=== PATIENT | male | born 1965 | race Caucasian/White ===

== ENCOUNTER 2017-04-06 20:24 | Inpatient (IN) | payer BC ==
[~2017-04-06] VITALS: Ht 188 cm; Wt 126.7 kg
[~2017-04-06 20:24] MED LIST: ASPIRIN 81M81 MG/TA2 PO; AZULFIDINE ENT500 MG PO; COZAAR 25MG25 MG/TAB PO; FLOMAX 0.40.4 MG/CAP PO; PROTONIX20 MG PO; ZITHROMAX 250M250 MG PO; [UNRECOGNIZED DRUG - OTHER]; [UNRECOGNIZED DRUG - OTHER] PO
[2017-04-06 20:48] LABS: BASO # 0.1 (0.0-0.2); BASO % 0.6 % (0.0-2.0); EOS # 0.1 (0.0-0.7); EOS % 0.9 % (0-4.0); GRAN # 8.4 (1.4-6.5); HEMATOCRIT 46.5 % (42.0-52.0); HEMOGLOBIN 15.3 g/dl (13.5-18.0); LYMPH # 2.9 (1.2-3.4); LYMPH % 22.7 % (20.0-51.0); MEAN CELL VOLUME 90 fl (80.0-100.0); MEAN CORPUSCULAR HEMOGLOBIN 30 pg (27.0-31.0); MEAN CORPUSCULAR HGB CONC 33 g/dl (33.0-37.0); MEAN PLATELET VOLUME 10.6 fl (7.4-10.4); MONO # 1.1 (0.1-0.6); MONO % 8.4 % (1.7-9.3); PLATELET COUNT 271 K/mm3 (130-400); RED BLOOD COUNT 5.17 M/mm3 (4.20-5.60); REDCELL DISTRIBUTION WIDTH-CV 12.8 % (11.5-14.5); WHITE BLOOD COUNT 12.7 K/mm3 (4.8-10.8)
[2017-04-06 20:56] LABS: ALBUMIN 4.8 gm/dL (3.5-5.0); BILIRUBIN,TOTAL 0.6 mg/dL (0.0-1.0); CALCIUM 9.6 mg/dL (8.4-10.2); CREATININE, serum 1.19 mg/dL (0.66-1.25); POTASSIUM 3.5 mmol/L (3.4-5.0); TOTAL PROTEIN 8.4 gm/dL (6.4-8.2)
[2017-04-06] MEDS ORDERED: HYZAAR 25 MG-101 TAB PO (22:37)
[2017-04-06 22:43] VITALS: BP 132/79; PULSE 69; TEMP 98.3
[2017-04-07 04:55] VITALS: BP 135/74; PULSE 65; TEMP 98.3
[2017-04-07 05:51] LABS: BASO % 0.3 % (0.0-2.0); EOS % 0.1 % (0-4.0); GRAN # 7.4 (1.4-6.5); GRAN % 78.1 % (42.2-75.2); LYMPH % 10.7 % (20.0-51.0); MEAN CELL VOLUME 91 fl (80.0-100.0); MEAN CORPUSCULAR HGB CONC 33 g/dl (33.0-37.0); MEAN PLATELET VOLUME 10.6 fl (7.4-10.4); MONO % 10.3 % (1.7-9.3); RED BLOOD COUNT 4.38 M/mm3 (4.20-5.60); REDCELL DISTRIBUTION WIDTH-CV 13.2 % (11.5-14.5); WHITE BLOOD COUNT 9.5 K/mm3 (4.8-10.8)
[2017-04-07 05:53] LABS: HEMOGLOBIN 13.1 g/dl (13.5-18.0); MEAN CORPUSCULAR HEMOGLOBIN 30 pg (27.0-31.0); PLATELET COUNT 165 K/mm3 (130-400)
[2017-04-07 06:02] LABS: ADJUSTED CALCIUM 8.7 mg/dL (8.4-10.2); BILIRUBIN,TOTAL 0.7 mg/dL (0.0-1.0); CALCIUM 8.7 mg/dL (8.4-10.2); CREATININE, serum 0.96 mg/dL (0.66-1.25); POTASSIUM 4.3 mmol/L (3.4-5.0); TOTAL PROTEIN 7.4 gm/dL (6.4-8.2)
[2017-04-07 10:28] VITALS: BP 133/73; PULSE 68; TEMP 98.4
[2017-04-07 13:12] VITALS: BP 130/67; PULSE 71; TEMP 98.9
[2017-04-07 17:18] VITALS: BP 145/69; PULSE 77; TEMP 99
[2017-04-07 22:30] VITALS: BP 147/69; PULSE 84; TEMP 99.2
[2017-04-08 01:39] VITALS: BP 131/74; PULSE 80; TEMP 98.7
[2017-04-08 06:02] VITALS: BP 124/75; PULSE 72; TEMP 98.1
[2017-04-08 09:11] VITALS: BP 121/72; PULSE 79; TEMP 98.8
[2017-04-08 12:36] VITALS: BP 136/82; PULSE 90; TEMP 98.3
[2017-04-08] MEDS ORDERED: Remove Patch TD (16:03)
[2017-04-08] MEDS ORDERED: PERCOCET 325 MG1 TA3 PO (16:03)
[2017-04-08] MEDS ORDERED: COLACE 100100 MG/CAP PO (16:04)
[2017-04-08 17:26] VITALS: BP 127/43; PULSE 87; TEMP 98.9
[2017-04-08 22:14] VITALS: BP 154/79; PULSE 94; TEMP 98.2
[2017-04-09 01:06] VITALS: BP 121/67; PULSE 79; TEMP 98.5
[2017-04-09 05:35] VITALS: BP 136/80; PULSE 77; TEMP 98.2
[2017-04-09 09:41] VITALS: BP 130/64; PULSE 84; TEMP 98.5
[2017-04-09] MEDS ORDERED: LIDODERM 5% PATC1 EA TP (11:47)
== END 2017-04-09 12:45 | disposition home or self-care (01) | DRG 184 ==
LOC: COL.ER 20:24 → SURG 21:16 → EDBEDREQ 21:43 → SURG 04-09 12:45
PROVIDERS: Emergency Medicine; Surgery
DX: S22.42XA Multiple fractures of ribs, left side, initial encounter for closed fracture (principal); S27.0XXA Traumatic pneumothorax, initial encounter; S42.112A Displaced fracture of body of scapula, left shoulder, initial encounter for closed fracture; F17.220 Nicotine dependence, chewing tobacco, uncomplicated; I10 Essential (primary) hypertension; V80.010A Animal-rider injured by fall from or being thrown from horse in noncollision accident, initial encounter; Y92.73 Farm field as the place of occurrence of the external cause
CPT/HCPCS: A9284; J1170; J2765; J3010; J7030; Q9967

== ENCOUNTER → 2017-09-23 | Outpatient (CLI) | payer BC ==
[~2017-09-23] VITALS: Ht 188 cm; Wt 130.6 kg
[~2017-09-23] MED LIST changes: +ASPIRIN E.C. 8181 MG PO; +AZULFIDINE500 MG/TAB PO; +COLACE 100100 MG/CAP PO; +HYZAAR 25 MG-101 TAB PO; +LIDODERM 5% PATC1 EA TP; +NITROSTAT0.4 MG/TAB SL; +PERCOCET 325 MG1 TA3 PO; +PROTONIX 40MG T40 MG PO; +Remove Patch TD
[2017-09-23 08:03] VITALS: BP 132/77; PULSE 61
== END ==
LOC: COL.RAD 07:47
DX: R07.9 Chest pain, unspecified (principal)
CPT/HCPCS: A9502

== ENCOUNTER → 2019-08-24 | Outpatient (CLI) | payer BC | LOC: COL.RAD 09:21 | DX: C61 Malignant neoplasm of prostate (principal); K80.20 Calculus of gallbladder without cholecystitis without obstruction | CPT/HCPCS: A9503; Q9967 ==